=== PATIENT | male | born 1955 | race Caucasian/White ===

== ENCOUNTER 2024-02-02 09:54 | Observation (INO) | payer OTHER ==
[2024-02-02] MEDS ORDERED: MORPHINE 2 MG/ML SYR IV PRN (17:25)
[2024-02-02] MEDS ORDERED: ONDANSETRON 4 MG/2 ML VIAL IV PRN (17:25)
[2024-02-02] MEDS ORDERED: ACETAMINOPHEN 500 MG TAB PO PRN (17:25)
[2024-02-02] MEDS: PIPER TAZO 3.375 GM in NA CHLORIDE 0.9% 100 ML IV SCH (17:45)
[2024-02-02 18:11] LABS: Absolute Eosinophils 0.1 K/uL (0-0.5); Absolute Lymphocytes (CBC) 1.9 K/uL (0.7-4.9); Absolute Monocytes 0.8 K/uL (0.1-1.3); Basophils % 0.5 % (0-1.3); Eosinophils % 1.4 % (0-4.4); Hematocrit 41.3 % (39.6-49.0); Lymphocytes % 21.3 % (15.3-44.8); MCHC 33.9 g/dL (32.0-36.0); MCV 88.7 fL (80-100); MPV 7.7 fL (7.6-11.3); Monocytes % 9.4 % (3.3-12.3); Neutrophils % 67.4 % (41.7-73.7); Nucleated Red Blood Cells % 0.1 % (0-0); Platelets 267 thou/uL (152-406); RBC Red Blood Cell Count 4.65 M/uL (4.33-5.43); Red Cell Distribution Width 14.1 % (12.1-15.2)
[2024-02-02 18:26] LABS: Albumin 3.6 g/dL (3.4-5.0); Albumin/Globulin Ratio 0.9 (1.1-1.8); Anion Gap 7.8 mEq/L (5.0-15.0); Bilirubin Total 0.5 mg/dL (0.2-1.0); Magnesium 2.1 mg/dL (1.6-2.4); Potassium 3.8 mEq/L (3.5-5.1); Protein, Total 7.6 g/dL (6.4-8.2)
[2024-02-02 19:16] VITALS: BMI 26.4
--- NOTE | 2024-02-02 20:01 | RAD REPORT ---
EXAMINATION: TWO VIEW CHEST XR CLINICAL INDICATION: HTN TECHNIQUE: 2 views of the chest was performed. COMPARISON: No prior exam. FINDINGS: The lungs are well inflated and clear. The heart is normal in size. No displaced fractures evident. IMPRESSION: No acute or significant abnormalities.
[2024-02-02] MEDS: DOXYCYCLINE 100 MG in NA CHLORIDE 0.9% 100 ML IVPB SCH (20:11)
[2024-02-02] MEDS: AMLODIPINE 5 MG TAB PO ONE (21:42)
[2024-02-03] MEDS: AMLODIPINE 10 MG TAB PO SCH (09:00)
[2024-02-03] MEDS: POTASSIUM CL SA 10 MEQ TAB PO ONE (09:00)
[2024-02-03] MEDS: Ringers Lactate 1,000 ML IV ONE (11:34)
[2024-02-03] MEDS: NA CHLORIDE 0.9% 0 ML ONE (11:34)
[2024-02-03] MEDS ORDERED: ONDANSETRON 4 MG/2 ML VIAL ONE (12:03)
[2024-02-03] MEDS ORDERED: LIDOCAINE 2% MPF 5 ML VIAL ONE (12:03)
[2024-02-03] MEDS ORDERED: FENTANYL CITR 100 MCG/2 ML ONE (12:04)
[2024-02-03] MEDS ORDERED: propofoL 200 MG/20 ML VIAL IV ONE (12:04)
[2024-02-03] MEDS ORDERED: EPHEDRINE SULF 50 MG/ML VIAL ONE (12:58)
--- NOTE | 2024-02-03 13:17 | P.BOP ---
Preoperative diagnosis: infected back deep subQ mass Postoperative diagnosis: same Primary procedure: Excisional biopsy with abscess drainage infected back deep subQ mass 4x4cm Estimated blood loss: <10cc Specimen: mass Findings: mass with abscess Anesthesia: General Complications: None Transferred to: Recovery Room Condition: Good
[2024-02-03] MEDS: FENTANYL CITR 100 MCG/2 ML ONE (13:57)
[2024-02-03 14:01] VITALS: BP 137/62; TEMP 97; O2SAT 98
--- NOTE | 2024-02-03 17:45 | HP ---
Date of Admission: 02/02/2024 Chief Complaint: Painful knot. History Of Present Illness: Mr. Bingham is a 68-year-old pleasant male patient who came into my office today with painful, swollen, red area on his back for last 2 weeks. He reports having a small cyst and on basis of his description, it is a sebaceous cyst that is always there for many years and somet imes it drains foul-smelling cheese type of material, but never cause any infection or pain until las t 2 weeks, this cyst type of area got lot larger than normal size. Overlying skin has become red and it is painful and has started to drain some pus type of material in last few days. Denies any fever , chills, nausea, vomiting, or any other constitutional symptoms. With this, he came into emergency room and was admitted to hospital with abscess/infected sebaceous cyst on his back for further manage ment. Allergies: NO KNOWN ALLERGIES. Medications: Amlodipine 10 mg daily. Review of Systems: Dermatology: As mentioned above. All other systems reviewed and negative. Past Medical History: Significant for hypertension, hyperlipidemia, impaired fasting glucose, benign prostatic hypertrophy, and diverticulosis. Past Surgical History: Tonsillectomy. Family History: Father has coronary artery disease. Sister with breast cancer and stroke. Social History: Prior history of smoking, not at present time. Use of alcohol occasional. Physical Examination: Vital Signs: Upon admission, his temperature 97.6, pulse 74, respiratory rate 16, blood pressure 165 /84, oxygen saturation 100%, height 6 feet, weight 195 pounds. General: Awake, alert, oriented, not in distress. HEENT: Head atraumatic, normocephalic. Conjunctivae nonerythematous. Sclerae white. Mouth, no thr ush or edema noted. Ears/Nose, no mass, lesion, discharge noted. Neck: Supple. No JVD, lymph nodes, bruit, thyromegaly noted. Lungs: Bilateral good equal air entry. Clear to auscultation. No rhonchi. No rales. Heart: Normal heart sounds, no murmur or gallop. Abdomen: Soft, bowel sounds normal. No guarding, rigidity, tenderness, mass, hepatosplenomegaly, dis tention, or bruit noted. Extremities: No leg edema. No calf tenderness. Skin: On his mid lateral back area, he has approximately 8 cm firm swelling where the center part wilson s pink, warm skin, tender to touch and guarding. The center has a small opening from which was noted purulent discharge. There is fluctuation present in the center of this swelling. Lymphatics: No lymph node enlargement in neck, supraclavicular, infraclavicular region. Neuro: No focal neurological deficit. Chest: Unremarkable. External Genitalia: Deferred. Rectal: Deferred. Laboratory Data: WBC 8.9, hemoglobin 14, platelets 267. Sodium 139, potassium 3.8, chloride 108, bi carb 27, BUN 14, creatinine 1.23, glucose 115. Liver function tests normal. Chest x-ray, no acute c ardiopulmonary changes. EKG pending. Impression: 1.Abscess/cellulitis, trunk. 2.Infected sebaceous cyst. 3.Hypertension. 4.Hyperlipidemia. 5.Impaired fasting glucose. 6.Benign prostatic hypertrophy. 7.Diverticulosis. Plan: The patient will be admitted to the hospital for observation. We will go ahead and start him on doxycycline and Zosyn per order for this abscess and infected sebaceous cyst on the trunk area. W ound culture was ordered. General surgeon, Dr. Glass was consulted and I have discussed details w ith him and plan is to keep the patient n.p.o. after midnight and take him to surgery tomorrow. SCD was ordered for DVT prophylaxis. For hypertension, he takes 10 mg of amlodipine daily. Considering his blood pressure tonight, we will give 5 mg of amlodipine x1 dose and starting tomorrow, continue h is usual dose of 10 mg daily. For hyperlipidemia, no need for further intervention. He does not yan e any medications for that. For impaired fasting glucose, no need for intervention and he is not on any medication. Benign prostatic hypertrophy problem is stable. He is asymptomatic from it, does no t require any medication. Plan of treatment discussed with the patient and total time spent today wa s 80 minutes including evaluation and management, making arrangements for hospital admission, communi cation with general surgeon, and communication with the hospital nursing staff. BELL/MODL Voice ID: [id number]
--- NOTE | 2024-02-03 19:01 | CON ---
Date of Consultation: 02/03/2024 Diagnosis: Infected back mass. History Of Present Illness: This is the case of a 68-year-old patient, comes to us with an infected back mass with abscess, admitted to the hospital for IV antibiotics. Surgical consult was obtained f or treatment. He has been draining and tender for a few days. Denies any trauma. Denies any dysuri a, hematuria, hematochezia, melena. Denies any traveling out of the country. Denies any family memb er sick at home. Review of Systems: No fever. No shortness of breath. Just erythema and tenderness on the back mass with abscess format ion. 10 points otherwise unremarkable. Allergies: NONE. Social History: He does not smoke. He does not drink alcohol. Family History: Noncontributory. Medical History: Reviewed. Medications: Reviewed. Physical Examination: Vital Signs: Stable. General: The patient is awake, alert. HEENT: Pupils are equal and reactive. Anicteric. Neck: Supple. Chest: Clear. Heart: S1, S2. Abdomen: Soft and depressible. No guarding or rebound. Extremities: Good capillary refill. Back: There is an infected mass. It is about 6 x 6 cm with erythema. The mass may be smaller than that. We will define that when we are in surgery trying to remove it and trying to drain the abscess . Erythema is present, fluctuance is present. Laboratory Data: Blood work shows WBC count of 8.9, hemoglobin of 14, potassium 3.8, and creatinine is 1.23. Chest x-ray shows no significant abnormalities. Assessment: A 68-year-old patient with infected back mass with abscess. The benefits, alternatives, and risks of excision and drainage of an abscess fully explained, which include, but not limited to infection, bleeding, damage to adjacent structures, anesthesia complication, recurrence, myocardial i nfarction, and even . He also understands this may not relieve symptoms. He might need more th an one surgical intervention. He understood, signed a consent. We also advised him about the import ance of dressing changes. DIXON/SNEHA Voice ID: [id number] Report ID: [id number]
--- NOTE | 2024-02-04 00:27 | OP ---
Date of Procedure: 02/03/2024 Surgeon: Jagdeep Glass MD Preoperative Diagnosis: Infected back deep subcutaneous mass. Postoperative Diagnosis: Infected back deep subcutaneous mass. Procedure: Excisional biopsy with abscess drainage of infected back deep subcutaneous mass, 4 x 4 cm . Estimated Blood Loss: Less than 10 cc. Specimen: Mass. Findings: Mass all the way down to fascia of the muscle. Some of the muscle fascia have to be remov ed, although does not penetrate the muscle. Abscess was found in deep margins of that mass. It was drained, loculations were explored open. Cultures were done. Anesthesia: General plus local. Complications: None. Indications: This is a case of a 68-year-old patient who comes to us with a back subcutaneous mass. The benefits, alternatives, and risks of excisional biopsy of infected back mass with abscess draina ge was fully explained, which include, but not limited to infection, bleeding, damage to adjacent str uctures, anesthesia complication, nonhealing wound, RI, and even . He also understands this may not relieve any symptoms. He might need more than one surgical intervention. He understood, signed a consent. Description Of Procedure: The patient was brought to the operating room, placed in supine position. Anesthesia was induced without complication. The area of concern was previously marked by me and th e patient in the holding room. The patient was placed in lateral decubitus position with proper prot ection. The back was prepped and draped in a sterile fashion. Local anesthesia was applied followed by a wedge incision of the skin. Incision was carried down to deep subcutaneous tissue. Some of th e fascia of the muscle was involved with the mass. The area was irrigated and hemostasis was obtaine d. Local anesthetic was applied and then we packed the area with wet-to-dry dressing. The patient t olerated the procedure well. The patient was sent to recovery in stable condition. If the patient g oes home today, he will be discharged home. We explained to the patient's family about dressing orr ges. He did not feel comfortable. It is okay if he is going to come in the next 48 hours to my offi ce and we will change dressings for him. In the meantime, continue the antibiotics. We are going to send him home with Augmentin 875 p.o. q.12 and also doxycycline 100 p.o. b.i.d., hydrocodone for annamarie n and saline for dressing changes. DIXON/SNEHA Voice ID: [id number] Report ID: [id number]
--- NOTE | 2024-02-04 05:12 | DS ---
Date of Discharge: 02/03/2024 Disposition: The patient will be discharged to go home. Physical Examination: HEENT: Unremarkable. Lungs: Clear to auscultation. Heart: Sounds normal. Abdomen: Soft. Bowel sounds normal. No guarding, rigidity, tenderness, distention. Extremities: No leg edema. Skin: The patient has swelling over right mid posterior back area. This swelling actually has gone smaller in size compared to yesterday. Today, it is about 4 cm in size, significantly smaller compar ed to yesterday. Center area has pink warm skin. Hospital Course: A 68-year-old male patient who came into office and subsequently admitted to the [facility] with abscess/infected sebaceous cyst over his back area. Please see dictated H and P for more information. After patient was evaluated at office and arrangement were made for him to be admitted to the hospital and Dr. Glass from General Surgery was consulted. After the patient came into [facility], routine blood work was done. Wound culture was sent. IV antibiotics, doxycycline and Zo syn, were started and the patient has tolerated antibiotics very well. This morning when I saw him, he had no other complaints. The patient's was present with him at bedside and I have given inst ruction to both of them that while he is taking doxycycline, which I expect him to take for 1 more we ek upon discharge, he should avoid any direct sunlight exposure due to photosensitivity type of side effect. He will be discharged to go home with Augmentin and doxycycline and he should take it as pre scribed 2 times a day on a full stomach. Dr. Glass [facility] and postoperatively wound care instructions should be followed by the patient and family as per instructions from Dr. Glass. I have asked him to come see me next week at my [facility] and to follow up with Dr. Glass as per his instructions. Final Diagnoses: 1.Abscess/cellulitis, trunk. 2.Infected sebaceous cyst. 3.Hypertension. 4.Hyperlipidemia. 5.Impaired fasting glucose. 6.Benign prostatic hypertrophy without lower urinary tract symptoms. 7.Diverticulosis. Discharge Medication Instruction: 1.Continue amlodipine 10 mg daily. 2.Start doxycycline 100 mg 2 times a day for 1 week. 3.Start Augmentin 875 mg 2 times a day for 1 week. Total time spent today 40 minutes. BELL/MODL Voice ID: [id number] Report ID: [id number]
== END 2024-02-03 14:44 | disposition home or self-care (01) ==
LOC: 2ND 09:54
PROVIDERS: ADMIT Internal Medicine; ATTEND Internal Medicine
PROC: 0JB70ZZ Excision of Back Subcutaneous Tissue and Fascia, Open Approach (ICD-10-PCS; principal; 2024-02-03 12:30)
DX: L72.0 Epidermal cyst (principal); L02.212 Cutaneous abscess of back [any part, except buttock and flank]; I10 Essential (primary) hypertension; E78.5 Hyperlipidemia, unspecified; N40.0 Benign prostatic hyperplasia without lower urinary tract symptoms; R73.01 Impaired fasting glucose; K57.90 Diverticulosis of intestine, part unspecified, without perforation or abscess without bleeding
CPT/HCPCS: 87070 ×2; 85025; 36415; 83735; 87205 ×2; 88304; 87075; 87077; 87186; 80053; 71046; 11404; J2704; J2543 ×2; J2003; J3010 ×2; J2405; G0378 ×3; J7120; G0379; J7030